=== PATIENT | female | born 1955 ===

== ENCOUNTER 2021-07-04 16:10 | Outpatient (CLI) | payer OTHER | END 2021-07-04 16:11 | disposition home or self-care (01) | LOC: RAD 16:10 | PROVIDERS: ATTEND Family Medicine | DX: M54.16 Radiculopathy, lumbar region (principal) ==

== ENCOUNTER 2024-12-17 07:12 | Outpatient (CLI) | payer OTHER | END 2024-12-17 07:13 | disposition home or self-care (01) | LOC: NUCLEAR 07:12 | DX: M54.51 Vertebrogenic low back pain (principal) | CPT/HCPCS: 78315; A9503 ==